=== PATIENT | female | born 1975 | race Caucasian/White ===

== ENCOUNTER → 2017-02-20 | Outpatient (CLI) | payer OTHER ==
[~2017-02-20] MED LIST: CLINORIL PO; DITROPAN5 MG PO; EFFEXOR75 M2 PO; HYDROCODONE/APA1 T16 PO; LOSARTAN-HCTZ1 EACH PO; MULTI-VITAMIN1 EAC1 PO; REQUIP3 MG PO
--- NOTE | ~2017-02-20 | CR97 ---
[facility] A Service of [facility] & [facility] RADIOLOGY TEXT RESULTS PATIENT: ASHLEY LUCERO LOCATION: [facility] : 77 UNIT #: [id number] AGE: [address]: Víctor Shirley MD SEX: F ORDER DR: [id number] [facility] [address] [place], [place] [address] [id number] O MR#: [id number] Acc #: [id number] NAME: ASHLEY LUCERO : 1975 SEX: F STUDY DATE/TIME: 02/20/2017 8:43 UNIT: [facility] ROOM: STUDY DESCRIPTION: CR Esophagram Attending Physician: Víctor Shirley M.D. Referring Physician: Víctor Shirley M.D. Ordering Physician: Víctor Shirley M.D. Primary Care Physician: Isaías Ennis Aprn MEDICAL IMAGING REPORT This report is preliminary unless electronic signature is present EXAM Single contrast barium esophagram INDICATIONS Preoperative examination prior to laparoscopic gastric banding surgery TECHNIQUE The patient was administered thin barium and multiple fluoroscopic images were obtained. FINDINGS Thoracic esophagus is of normal caliber with no evidence of stricture or mass lesion. Esophageal motility appeared to be within normal limits. No hiatal hernia was seen although the patient does have spontaneous reflux into the upper thoracic size. Total fluoroscopy time was 0.3 minutes and a total of 10 fluoroscopic images were obtained. IMPRESSION Spontaneous reflux into the upper thoracic esophagus, otherwise unremarkable examination. Dictated by... Darling Mcqueen M.D. THIS IS AN ELECTRONICALLY VERIFIED REPORT Darling Mcqeuen M.D. at 02/23/2017 4:45 PM AFF/to TD: 02/23/2017 11:07 JOB #: [id number] MEDICAL IMAGING REPORT Page 1 of 1 COPY
--- NOTE | ~2017-02-20 | EKG ---
PATIENT: ASHLEY LUCERO UNIT #: [id number] Ventricular Rate: 94 BPM Atrial Rate: 94 BPM P-R Interval: 168 ms QRS Duration: 82 ms Q-T Interval: 368 ms QTC Calculation(Bezet): 460 ms P [place]: 46 degrees Calculated R [place]: 18 degrees Calculated T [place]: 19 degrees Diagnosis Line: Normal sinus rhythm Diagnosis Line: Normal ECG Diagnosis Line: No previous ECGs available Diagnosis Line: Confirmed by DARLYN PEACE MD ([id number]) on 02/23/2017 Diagnosis Line: 10:45:22 PM INTERPRETING MD: NATA SOLORZANO
--- NOTE | ~2017-02-20 | CR63 ---
[facility] A Service of [facility] & [facility] RADIOLOGY TEXT RESULTS PATIENT: ASHLEY LUCERO LOCATION: [facility] : 77 UNIT #: [id number] AGE: [address]: Víctor Shirley MD SEX: F ORDER DR: [id number] [facility] [address] [place], [place] [address] [id number] O MR#: [id number] Acc #: [id number] NAME: ASHLEY LUCERO : 1975 SEX: F STUDY DATE/TIME: 02/20/2017 8:08 UNIT: [facility] ROOM: STUDY DESCRIPTION: CR Chest 2 View Attending Physician: Víctor Shirley M.D. Referring Physician: Víctor Shirley M.D. Ordering Physician: Víctor Shirley M.D. Primary Care Physician: Isaías Ennis Aprn MEDICAL IMAGING REPORT This report is preliminary unless electronic signature is present EXAM Chest 02/20/2017. HISTORY 41-year-old woman preop clearance for laparoscopic adjustable gastric band placement and possible paraesophageal hernia repair. Short of air, high blood pressure, morbid obesity. COMPARISON None. FINDINGS Two-view chest demonstrates borderline heart size. Hilar structures are preserved. Bilateral lungs are expanded and clear. Large body habitus noted. IMPRESSION Borderline heart size. Large body habitus. No acute chest finding. Dictated by... Pawan Syed M.D. THIS IS AN ELECTRONICALLY VERIFIED REPORT Pawan Syed M.D. at 02/20/2017 11:33 AM Augusto TD: 02/20/2017 09:38 JOB #: [id number] MEDICAL IMAGING REPORT Page 1 of 1 COPY
[2017-02-20 09:48] LABS: HEMATOCRIT 34.7 % (35.0-45.0); HEMOGLOBIN 10.6 gm/dL (12.0-16.0); MEAN CELL VOLUME 70.1 FL (83-96); MEAN CORPUSCULAR HEMOGLOBIN 21.6 PG (28-34); MEAN CORPUSCULAR HGB CONC 30.7 g/dL (30-36); MEAN PLATELET VOLUME 9.9 FL (6.5-11.5); RED BLOOD COUNT 4.94 X10e (3.90-5.30); RED CELL DISTRIBUTION WIDTH 19.6 % (11.0-15.5); WHITE BLOOD COUNT 11.6 X10e3 (4.0-10.5)
[2017-02-20 11:09] LABS: ALBUMIN SERUM 3.8 g/dL (3.5-5.0); BILIRUBIN,TOTAL 0.3 mg/dL (0.2-2.0); CALCIUM SERUM 9.1 mg/dL (8.4-10.2); CREATININE SERUM 0.7 mg/dL (0.6-1.4); GLOM FILT RATE Estimated 108.4 mL/min (>60); POTASSIUM 4.1 mmol/L (3.5-5.1); PROTEIN TOTAL SERUM 7.3 g/dL (6.0-8.3)
== END | disposition home or self-care (01) ==
LOC: CRAD 07:58
PROVIDERS: Surgery
DX: Z01.818 Encounter for other preprocedural examination (principal); K21.9 Gastro-esophageal reflux disease without esophagitis
CPT/HCPCS: 36415; 71020; 74220; 80053; 80061; 84443; 85027; 93005

== ENCOUNTER → 2017-03-04 | Day surgery (SDC) | payer OTHER ==
--- NOTE | ~2017-03-04 | OR ---
Unit #: [id number] #: [id number] Patient: ASHLEY LUCERO [id number] [address] [address] [id number] O MR#: [id number] NAME: ASHLEY LUCERO ROOM: Date of Procedure: 03/04/2017 Admission Date: 03/04/2017 Surgeon: Víctor Shirley M.D. : 1975 Attending Physician: Víctor Shirley M.D. Primary Care Physician: Isaías Ennis Aprn OPERATIVE REPORT PREOPERATIVE DIAGNOSIS Chronic morbid obesity, body mass index of 42. POSTOPERATIVE DIAGNOSES 1. Chronic morbid obesity, body mass index of 42. 2. Paraesophageal hiatal hernia. PROCEDURES PERFORMED 1. Laparoscopic adjustable gastric band. 2. Laparoscopic paraesophageal hiatal hernia repair. STRATEGIES ANALYST Jessica. ANESTHESIA General endotracheal anesthesia. ESTIMATED BLOOD LOSS Minimal. IV FLUIDS 800 crystalloid. COMPLICATIONS None. INDICATIONS FOR PROCEDURE The patient is a 41-year-old with chronic morbid obesity. DESCRIPTION OF PROCEDURE The patient was taken to the operating room and placed in supine position. General anesthesia was induced. The abdomen was prepped and draped. A 3-cm incision was then made left of the midline. A 10-mm Visiport was then placed intraabdominal under direct vision. The abdomen was insufflated to 15 mmHg with CO2. The patient was then placed in a steep reversed Trendelenburg. General inspection of the abdomen revealed what appeared to be a paraesophageal hernia. This was identified with a defect at the diaphragm using anterior palpation with the instrument. We then made a small incision in the subxiphoid region. A Wendy liver retractor was then placed intraabdominal and used to retract the left lobe of the liver upward to further expose the paraesophageal hernia and GE junction. I then placed a 5-mm port in the right upper quadrant, a 10-mm Unit #: [id number] #: [id number] Patient: ASHLEY LUCERO port in the left upper quadrant, and another 5-mm port in the left lower quadrant. The stomach was retracted medial and downward. Upon retracting the stomach, we took down the paraesophageal ligament, exposing the right and left wayne at the paraesophageal hernia. Any hernia sac was reduced. We then repaired the paraesophageal hernia using interrupted #0 Ethibond sutures in a [id number] type fashion. This formed a snug repair to the anterior esophagus. We then retracted the stomach medially and further exposed the angle of His using Bovie electrocautery. The stomach was then retracted laterally. We then took down the hepatogastric ligament with Bovie electrocautery. This exposed the right wayne. Using blunt dissection, I created a retrogastric tunnel from this point to the angle of His. The band was then placed intraabdominal through the 10-mm port site. This was then brought through the retrogastric tunnel in a pars flaccida technique. The band was then closed anteriorly to form a 20-mL to 25-mL anterior gastric pouch. The fundus was then secured to the anterior pouch to prevent movement around the stomach using two interrupted #0 Ethibond sutures. A third suture was then used as a gathering stitch from the lesser curve to the anterior stomach, gathering and imbricating the remaining fundus of the stomach. The tubing was then brought out through the midline 10-mm port site. All ports and the Wendy liver retractor were removed under direct vision with no evidence of abdominal hemorrhage. A polypropylene mesh was then secured to the posterior face of the laparoscopic band port. This was secured using #0 Ethibond suture. This was then cut to shape. The port was then connected to the tubing and placed into a subcutaneous pocket just anterior to the rectus sheath. Its position was then confirmed. All tubing was then placed intraabdominal. The wounds were then closed with interrupted 4-0 Vicryl. The patient tolerated the procedure well and was sent to the recovery room in good condition. Dictated by... Ritu Wild/jacob TD: 03/04/2017 20:09 JOB #: [id number] OPERATIVE REPORT Page 1 of 1 X Víctor Shirley MD PROCEDURE OPERATIVE NOTE
--- NOTE | ~2017-03-04 | CR7 ---
[facility] A Service of [facility] & [facility] RADIOLOGY TEXT RESULTS PATIENT: ASHLEY LUCERO LOCATION: [facility] : [birth year] UNIT #: [id number] AGE: [address]: Víctor Shirley MD SEX: F ORDER DR: [id number] [facility] [address] [place], [place] [address] [id number] O MR#: [id number] Acc #: [id number] NAME: ASHLEY LUCERO : 1975 SEX: F STUDY DATE/TIME: 03/04/2017 9:51 UNIT: [facility] ROOM: STUDY DESCRIPTION: CR Abdomen Single AP View Attending Physician: Víctor Shirley M.D. Ordering Physician: Víctor Shirley M.D. Primary Care Physician: Isaías Ennis Aprn MEDICAL IMAGING REPORT This report is preliminary unless electronic signature is present EXAM KUB 03/04 INDICATIONS Gastric band placement today. Morbid obesity. FINDINGS Supine view of the abdomen was obtained. Gastric band is present with supine phi angle of 48 degrees. Port is in the left lower quadrant. The visualized bowel gas pattern is normal. Cholecystectomy clips are present. IMPRESSION Gastric band in place with phi angle of 48 degrees. Dictated by... Ian Carvalho Jr., M.D. THIS IS AN ELECTRONICALLY VERIFIED REPORT Ian Carvalho Jr., M.D. at 03/04/2017 3:54 PM MOSES/milton TD: 03/04/2017 11:12 JOB #: [id number] MEDICAL IMAGING REPORT Page 1 of 1 COPY
== END | disposition home or self-care (01) ==
LOC: CSUR 06:26
DX: E66.01 Morbid (severe) obesity due to excess calories (principal); K44.9 Diaphragmatic hernia without obstruction or gangrene; I10 Essential (primary) hypertension; K21.9 Gastro-esophageal reflux disease without esophagitis; F41.9 Anxiety disorder, unspecified; F32.9 Major depressive disorder, single episode, unspecified; Z68.41 Body mass index [BMI] 40.0-44.9, adult; Z79.899 Other long term (current) drug therapy; Z90.49 Acquired absence of other specified parts of digestive tract
CPT/HCPCS: 74000; 84703; C1781; J0330; J0690; J1100; J1650; J1885; J2250; J2405; J2710; J3010